=== PATIENT | female | born 1950 | race Caucasian/White ===

== ENCOUNTER 2025-01-31 20:25 | Emergency (ER) | payer MEDICARE, SELFPAY ==
[2025-01-31 20:35] VITALS: BP 122/69; PULSE 64; TEMP 36.6; O2SAT 99; BMI 18.2
--- NOTE | 2025-01-31 22:07 | CTR_ITS ---
PROCEDURE INFORMATION: Exam: CT Head Without ContrastNo acute intracranial hemorrhage, mass effect or midline shift. 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 Ex vacuo expansion of the ventricles due to volume loss. Exam date and time: 01/31/2025 10:31 PM Age: 74 years old Clinical indication: Injury or trauma; Fall; Concussion/head injury; Additional info: Fall, head injury TECHNIQUE: Imaging protocol: Computed tomography of the head without contrast. Radiation optimization: All CT scans at this facility use at least one of these dose optimization techniques: automated exposure control; mA and/or kV adjustment per patient size (includes targeted exams where dose is matched to clinical indication); or iterative reconstruction. COMPARISON: No relevant prior studies available. RADIATION DOSE METRICS: Total DLP (mGy-cm): 1146.48 FINDINGS: Brain: No hemorrhage. No mass effect or midline shift. No significant white matter disease. Cerebral ventricles: No ventriculomegaly. Paranasal sinuses: Visualized sinuses are unremarkable. No fluid levels. Mastoid air cells: Visualized mastoid air cells are well aerated. Bones: No acute bony findings. Soft tissues: Unremarkable. CT/CT head wo con* [id number] IMPRESSION: No acute intracranial findings.
--- NOTE | 2025-01-31 22:07 | XRR_ITS ---
PROCEDURE INFORMATION: Exam: XR Right Hip Exam date and time: 01/31/2025 10:14 PM Age: 74 years old Clinical indication: Injury or trauma; Fall; Blunt trauma (contusions or hematomas); Right; Hip; Additional info: Hip pain TECHNIQUE: Imaging protocol: Radiologic exam of the right hip. Views: 1 view hip with pelvis when performed. COMPARISON: CR XR femur RT min 2V* [id number] 01/31/2025 10:14 PM FINDINGS: Bones/joints: Mild osseous demineralization. Normal alignment. No evidence of acute fracture or dislocation. Mild degenerative changes of the right femoroacetabular joint. Soft tissues: Unremarkable. XR/XR hip RT 2-3V wo/w pel* [id number] IMPRESSION: No evidence of acute fracture or dislocation.
--- NOTE | 2025-01-31 22:07 | XRR_ITS ---
PROCEDURE INFORMATION: Exam: XR Right Shoulder Exam date and time: 01/31/2025 10:10 PM Age: 74 years old Clinical indication: Injury or trauma; Fall; Blunt trauma (contusions or hematomas); Shoulder; Right; Additional info: Fall, pain TECHNIQUE: Imaging protocol: Radiologic exam of the right shoulder. Views: 2 or more views. COMPARISON: No relevant prior studies available. FINDINGS: Limitations: Suboptimal scapular Y-view. Bones/joints: Mild osseous demineralization. Grossly normal alignment. No evidence of acute fracture or dislocation. Moderate degenerative changes of the glenohumeral and acromioclavicular joints. Soft tissues: Normal. XR/XR shoulder RT min 2V* [id number] IMPRESSION: No evidence of acute fracture or dislocation.
--- NOTE | 2025-01-31 22:07 | XRR_ITS ---
PROCEDURE INFORMATION: Exam: XR Right Femur Exam date and time: 01/31/2025 10:14 PM Age: 74 years old Clinical indication: Injury or trauma; Fall; Blunt trauma; Thigh or upper leg; Right; Additional info: Fall, pain TECHNIQUE: Imaging protocol: Radiologic exam of the right femur. Views: 2 views. COMPARISON: CR (LOW EXM, ) 01/31/2025 10:14 PM FINDINGS: Bones/joints: Mild osseous demineralization. Normal alignment. No evidence of acute fracture or dislocation. Soft tissues: The soft tissues are within normal limits. XR/XR femur RT min 2V* [id number] IMPRESSION: No evidence of acute fracture or dislocation.
--- NOTE | 2025-01-31 22:07 | XRR_ITS ---
PROCEDURE INFORMATION: Exam: XR Right Knee Exam date and time: 01/31/2025 10:14 PM Age: 74 years old Clinical indication: Injury or trauma; Fall; Blunt trauma; Knee; Right; Additional info: Fall, pain TECHNIQUE: Imaging protocol: Radiologic exam of the right knee. Views: 3 views. COMPARISON: CR XR femur RT min 2V* [id number] 01/31/2025 10:14 PM FINDINGS: Bones/joints: Osseous demineralization. No definitive evidence of acute fracture or dislocation. Normal alignment. Small calcific densities adjacent to the medial tibia are likely sequela of prior injury. Soft tissues: Questionable medial soft tissue swelling. XR/XR knee RT 3V* [id number] IMPRESSION: 1. No definitive evidence of acute fracture or dislocation. 2. Small calcific densities adjacent to the medial tibia are likely sequela of prior injury. Acute avulsion fracture could potentially have this appearance. Correlate with physical exam.
--- NOTE | 2025-01-31 22:07 | CTR_ITS ---
PROCEDURE INFORMATION: Exam: CT Lumbar Spine Without Contrast Exam date and time: 01/31/2025 10:39 PM Age: 74 years old Clinical indication: Injury or trauma; Fall; Blunt trauma (contusions or hematomas); Additional info: Low back pain TECHNIQUE: Imaging protocol: Computed tomography of the lumbar spine without contrast. Radiation optimization: All CT scans at this facility use at least one of these dose optimization techniques: automated exposure control; mA and/or kV adjustment per patient size (includes targeted exams where dose is matched to clinical indication); or iterative reconstruction. COMPARISON: CT pelvis wo con [id number] 01/31/2025 10:35 PM RADIATION DOSE METRICS: Total DLP (mGy-cm): 411.6 FINDINGS: Bones/joints: Normal alignment. Mild osseous demineralization. 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 Age-indeterminate distal (S5) fracture suspicious for acute fracture. Subtle superior endplate height loss of L5 and mild inferior endplate height loss of L3 which have a chronic appearance. No definitive acute fracture of the lumbar spine. Spina bifida of the sacrum is incidentally noted. Chronic appearing right L1 and left L2 transverse process fractures. Mild multilevel degenerative change. Soft tissues: Increased soft tissue density in the subcutaneous fat overlying the distal sacrum may represent subcutaneous bruising. CT/CT lumbar spine wo con* [id number] IMPRESSION: Age-indeterminate distal (S5) fracture suspicious for acute fracture.
--- NOTE | 2025-01-31 22:15 | CTR_ITS ---
PROCEDURE INFORMATION: Exam: CT Pelvis Without Contrast, Skeleton Exam date and time: 01/31/2025 10:35 PM Age: 74 years old Clinical indication: Injury or trauma; Fall; Blunt trauma (contusions or hematomas); Bilateral; Pelvic region; Additional info: Traumatic pelvic pain TECHNIQUE: Imaging protocol: Computed tomography of the pelvis without contrast. Exam focused on the skeleton. Radiation optimization: All CT scans at this facility use at least one of these dose optimization techniques: automated exposure control; mA and/or kV adjustment per patient size (includes targeted exams where dose is matched to clinical indication); or iterative reconstruction. COMPARISON: CR (PELVIS, ) 01/31/2025 10:14 PM RADIATION DOSE METRICS: Total DLP (mGy-cm): 267.85 FINDINGS: Bones/joints: Mild osseous demineralization. Normal alignment. Age-indeterminate fracture of the distal sacrum (S5), suspicious for acute fracture. Mild chronic appearing superior endplate height loss L5. Soft tissues: Increased soft tissue density in the subcutaneous fat overlying the sacrum, possibly representing subcutaneous bruising. CT/CT pelvis [facility] [id number] IMPRESSION: Age-indeterminate fracture of the distal sacrum, suspicious for acute fracture.
--- NOTE | 2025-01-31 22:15 | W.ED.BACK ---
HPI - Back Pain/Injury General: Chief Complaint: Back Pain/Injury Stated Complaint: Fall\Back and Hips\Rt Elbow Time Seen by Provider: 01/31/25 21:44 History of Present Illness: 74-year-old female who presents emergency room after having had a fall earlier. Apparently she tripped and fell. She is having pain in her right arm. I cannot find any focal area where it hurts. Patient is having a very hard time describing exactly where she hurts. It seems to be mostly her right side. She is having some low back pain and again on palpation she just says she is sore everywhere and there is nothing focal. Is complaining of pain in her entire right leg. Once again I do not see any deformities. No focal tender areas. She has full range of motion. She has been able to walk. No focal motor deficits. No increased work of breathing. She seems very anxious and family says this is fairly normal for her. Related Data Previous Rx's ?Medication ?Instructions ?Recorded diclofenac sodium 50 mg 50 mg PO BID PRN pain #14 tabs 01/31/25 tablet,delayed release tramadol 50 mg tablet 50 mg PO Q8H PRN pain #10 tabs 01/31/25 Allergies Allergy/AdvReac Type Severity Reaction Status Date / Time codeine Allergy Unknown Verified 01/31/25 20:43 Review of Systems Narrative: Constitutional symptoms: Negative except as documented in HPI. Skin symptoms: Negative except as documented in HPI. Eye symptoms: Negative except as documented in HPI. ENMT symptoms: Negative except as documented in HPI. Respiratory symptoms: Negative except as documented in HPI. Cardiovascular symptoms: Negative except as documented in HPI. Gastrointestinal symptoms: Negative except as documented in HPI. Genitourinary symptoms: Negative except as documented in HPI. Musculoskeletal symptoms: Negative except as documented in HPI. Neurologic symptoms: Negative except as documented in HPI. Psychiatric symptoms: Negative except as documented in HPI. Endocrine symptoms: Negative except as documented in HPI. Physical Exam Narrative: EXAM NARRATIVE: General: Alert, no acute distress. Skin: Warm, dry. Head: Normocephalic, atraumatic. Neck: Supple, trachea midline. Eye: Extraocular movements are intact. Ears, nose, mouth and throat: mucosa moist. Cardiovascular: Regular, Normal peripheral perfusion. Respiratory: Lungs are clear to auscultation, respirations are non-labored, breath sounds are equal, Symmetrical chest wall expansion. Gastrointestinal: Soft, Nontender, Non distended Musculoskeletal: Normal ROM, no deformity. Neurological: Alert and oriented, No focal neurological deficit observed. Psychiatric: Cooperative, appropriate mood & affect. Course Vital Signs: Vital signs: Vital Signs Temperature 97.9 F 01/31/25 20:35 Pulse Rate 64 01/31/25 20:35 Blood Pressure 122/69 01/31/25 20:35 Pulse Oximetry 99 01/31/25 20:35 Oxygen Delivery Me thod Room Air 01/31/25 20:35 MDM - Back Pain/Injury Medical Decision Making CT head: No acute intracranial process. no intracranial hemorrhage, no evidence of infarct. no evidence of acute fracture.This was reviewed and interpreted by myself the ER physician. CT of the lumbar spine: Concern for distal S5 fracture. Good alignment. No step-offs. This was reviewed and interpreted by myself the emergency room physician. CT of the pelvis without contrast: Age-indeterminate fracture of the distal sacrum. Suspected acute. Patient does have symptoms in this area. This was reviewed and interpreted by myself the emergency room physician. I also reviewed the radiology report. X-ray of the right knee: No evidence of definite acute fracture. Small calcific densities that appear to be something old. Exam would support this. This was reviewed and interpreted by myself the emergency room physician. I also reviewed the radiology report. Shoulder x-ray: Nothing acute. This was reviewed and interpreted by myself the emergency room physician. I also reviewed the radiology report. Assessment and plan: Fall Sacral fracture ? Ultram and Zofran in the emergency room. - Discharged home - Discussed plan with patient. Answered any questions. - Evaluation and treatment of this problem were appropriate in the emergency setting. Labs Radiology Impressions Femur X-Ray 01/31/25 22:07 IMPRESSION: No evidence of acute fracture or dislocation. Head CT 01/31/25 22:07 IMPRESSION: No acute intracranial findings. ADDENDUM: 01/31/25 [id number] IMPRESSION: No acute intracranial findings. Hip/Pelvis X-Ray 01/31/25 22:07 IMPRESSION: No evidence of acute fracture or dislocation. Knee X-Ray 01/31/25 22:07 IMPRESSION: 1. No definitive evidence of acute fracture or dislocation. 2. Small calcific densities adjacent to the medial tibia are likely sequela of prior injury. Acute avulsion fracture could potentially have this appearance. Correlate with physical exam. Lumbar Spine CT 01/31/25 22:07 IMPRESSION: Age-indeterminate distal (S5) fracture suspicious for acute fracture. Shoulder X-Ray 01/31/25 22:07 IMPRESSION: No evidence of acute fracture or dislocation. Pelvis CT 01/31/25 22:15 IMPRESSION: Age-indeterminate fracture of the distal sacrum, suspicious for acute fracture. All radiology interpretation(s) finalized by discharge Discharge Plan Discharge Patient Disposition: Home Clinical Impression: Sacral fracture, Fall Condition: Stable Prescriptions: New tramadol 50 mg tablet 50 mg PO Q8H PRN (Reason: pain) Qty: 10 0RF diclofenac sodium 50 mg tablet,delayed release (DR/EC) 50 mg PO BID PRN (Reason: pain) Qty: 14 0RF Discharge Orders: Discharge ED (Routine); Ordered 01/31/25 Ordered By: Lilly Herman Discharge Diet: Usual diet Discharge Activity: Increase activity as tolerated Patient Instructions: Fall Prevention for Older Adults (ED), Opioid Safety, Pain Management Activity Restrictions/Additional Instructions: Thank you for choosing [facility] for your healthcare needs today. Please realize this is an emergency room and that we are providing you with a medical screening exam and this may not be complete and all inclusive of all the testing and or work up that you may need to determine your ailment or severity of your illness. You have been screened and evaluated and felt safe for discharge. Health conditions do change or evolve sometimes and as such it is important that you follow up with your Primary Doctor to be re checked, 3-5 days is a general good time frame for follow up. You are always welcome to return to the ED for re assessment if your symptoms are worsening or you have new concerns Print Language: Greenlandic Coding Level of Care Code ED Multi Line Claims Adjuster for [facility]
[2025-02-01] MEDS: ondansetron hcl ODT 4 mg Tab PO
[2025-02-01] MEDS: TRAMadol 50 mg Tablet PO (00:01)
[2025-02-01 00:15] VITALS: BP 112/63; PULSE 60; O2SAT 98
== END 2025-02-01 00:19 | disposition home or self-care (01) ==
PROVIDERS: Emergency Provider Emergency Medicine
DX: M79.601 Pain in right arm (principal); S32.10XA Unspecified fracture of sacrum, initial encounter for closed fracture; W19.XXXA Unspecified fall, initial encounter; M79.651 Pain in right thigh; S09.90XA Unspecified injury of head, initial encounter; M25.561 Pain in right knee; M54.50 Low back pain, unspecified
CPT/HCPCS: 70450; 72131; 72192; 73030; 73502; 73552; 73562; 99284; J9999; Q0162

== ENCOUNTER → 2025-02-25 09:25 | Outpatient (BNVA) | payer MEDICARE, SELFPAY | PROVIDERS: PCP Nurse Practitioner Family; Visit Provider Orthopaedic Surgery | DX: M25.531 Pain in right wrist (principal); M79.641 Pain in right hand; M18.11 Unilateral primary osteoarthritis of first carpometacarpal joint, right hand | CPT/HCPCS: 73130 ==

== ENCOUNTER 2025-02-25 10:52 | Outpatient (CLI) | payer MEDICARE, SELFPAY | END 2025-02-25 10:53 | disposition home or self-care (01) | LOC: SPT 10:54 | PROVIDERS: PCP Nurse Practitioner Family; Visit Provider Orthopaedic Surgery | DX: Z46.89 Encounter for fitting and adjustment of other specified devices (principal); M79.644 Pain in right finger(s) | CPT/HCPCS: 99204; J3301; J3490; J9999; L3809 ==